=== PATIENT | male | born 1990 | race Caucasian/White ===

== ENCOUNTER 2016-09-11 23:25 | Emergency (ER) | payer MEDICARE | END 2016-09-11 23:30 | disposition left against medical advice (07) | LOC: ER1 23:25 | DX: Z53.21 Procedure and treatment not carried out due to patient leaving prior to being seen by health care provider (principal) | CPT/HCPCS: 93005 ==

== ENCOUNTER 2016-09-14 12:39 | Emergency (ER) | payer MEDICARE ==
[2016-09-14 14:04] LABS: HEMOGLOBIN 16.8 gm/dl (14.0-17.5); RED BLOOD COUNT 5.59 M/UL (4.20-5.50); WHITE BLOOD COUNT 8.3 K/UL (4.5-11.0)
[2016-09-14 14:30] LABS: BUN/CREATININE RATIO 11 (0-10)
[2016-09-18 02:17] LABS: ACINETOBACTER BAUMANNII Not Detected (Negative); CANDIDA ALBICANS Not Detected (Negative); CANDIDA KRUSEI Not Detected (Negative); CANDIDA TROPICALIS Not Detected (Negative); ENTEROCOCCUS Not Detected (Negative); ESCHERICHIA COLI Not Detected (Negative); HAEMOPHILUS INFLUENZAE Not Detected (Negative); KLEBSIELLA OXYTOCA Not Detected (Negative); KLEBSIELLA PNEUMONIAE Not Detected (Negative); KPC-CARBAPENEM-RESISTANCE GENE Not Detected (Negative); PROTEUS Not Detected (Negative); PSEUDOMONAS AERUGINOSA Not Detected (Negative); SERRATIA MARCESANS Not Detected (Negative); STAPHYLOCOCCUS Not Detected (Negative); STAPHYLOCOCCUS AUREUS Not Detected (Negative); STREP AGALACTIAE (GROUP B) Not Detected (Negative); STREP PYOGENES (GROUP A) Not Detected (Negative); STREPTOCOCCUS Not Detected (Negative); mecA (METHICILLIN RESIST GENE Not Detected (Negative); vanA/B (VANCOMYCIN RESIST GENE Not Detected (Negative)
== END 2016-09-14 17:10 | disposition home or self-care (01) ==
LOC: ER1 12:39
PROVIDERS: Physician Assistant
DX: R07.89 Other chest pain (principal); E87.6 Hypokalemia; F19.10 Other psychoactive substance abuse, uncomplicated; F17.200 Nicotine dependence, unspecified, uncomplicated
CPT/HCPCS: 36415; 70491; 71260; 80053; 82550; 82553; 83605; 83874; 84484; 85025; 87040; 87077; 87150; 99285; J0610; J1815; J7030; J7050; Q9962

== ENCOUNTER 2016-10-21 10:37 | Emergency (ER) | payer MEDICARE | END 2016-10-21 17:50 | disposition home or self-care (01) | LOC: ER1 10:37 | DX: S02.2XXA Fracture of nasal bones, initial encounter for closed fracture (principal); F17.210 Nicotine dependence, cigarettes, uncomplicated; V86.59XA Driver of other special all-terrain or other off-road motor vehicle injured in nontraffic accident, initial encounter | CPT/HCPCS: 12001; 36415; 70450; 70486; 71250; 72070; 72125; 81001; 87086; 99284; J7030; Q9962 ==

== ENCOUNTER 2021-05-27 13:00 | Emergency (ER) | payer OTHER ==
[~2021-05-27 13:00] MED LIST: AZITHROMYCIN250 MG PO; BACTRIM DS TAB1 EACH PO; BENTYL 20MG TAB20 MG PO; ERYTHROMYCIN OP1 GM EYERT; FLAGYL500 MG PO; IBUPROFEN600 MG PO; KEFLEX CAP 500500 MG PO; NAPROSYN500 MG PO; ZOFRAN ODT 4 MG4 MG PO
[2021-05-27 15:47] LABS: HEMOGLOBIN 14.7 gm/dl (14.0-17.5); RED BLOOD COUNT 5.19 M/UL (4.20-5.50); WHITE BLOOD COUNT 8.8 K/UL (4.5-11.0)
[2021-05-27 16:12] LABS: BUN/CREATININE RATIO 26 (0-10)
[2021-05-27] MEDS ORDERED: PERCOCET 5/325 T1 EA PO (21:42)
[2021-05-27] MEDS ORDERED: IBUPROFEN600 MG PO (21:42)
== END 2021-05-27 22:08 | disposition home or self-care (01) ==
LOC: ER1 13:00
PROVIDERS: Emergency Medicine
DX: S20.219A Contusion of unspecified front wall of thorax, initial encounter (principal); V49.40XA Driver injured in collision with unspecified motor vehicles in traffic accident, initial encounter; Y92.410 Unspecified street and highway as the place of occurrence of the external cause
CPT/HCPCS: 71260; 72125; 72128; 72131; 73060; 73502; 80053; 85025; 96374; 96375; 99284; J2270; J2405; Q9967